=== PATIENT | female | born 1965 | race Caucasian/White ===

== ENCOUNTER 2020-11-15 10:16 | Outpatient (CLI) | payer OTHER, SELFPAY ==
--- NOTE | ~2020-11-15 | XR_ITS ---
EXAMINATION: XR chest 2V 11/15/2020 11:11 INDICATION: Shortness of breath PROCEDURE: 2 view chest COMPARISON: 05/27/2018 FINDINGS: The lungs are clear. The cardiomediastinal silhouette is within normal limits. There are no pleural effusions. There is no pneumothorax suspected. IMPRESSION: 1: NO ACUTE CARDIOPULMONARY DISEASE. Reviewed, dictated and finalized at location A.
--- NOTE | 2020-11-15 10:44 | ECG_ITS ---
Measurements Intervals [place] Rate: 73 P: 22 [place]: 156 QRS: 26 QRSD: 87 T: 33 QT: 382 QTc: 421 Interpretive Statements SINUS RHYTHM BASELINE WANDER- I, III NORMAL ECG Electronically Signed On 11-15-2020 11:05:48 CDT by Liang Rogel D.O.
== END 2020-11-15 10:17 | disposition home or self-care (01) ==
LOC: ANHCARD 10:18
PROVIDERS: PCP Family Medicine; Visit Provider Nurse Practitioner Family
DX: R68.89 Other general symptoms and signs (principal); R05 Cough
CPT/HCPCS: 71046; 93005

== ENCOUNTER 2020-12-28 01:40 | Day surgery (SDC) | payer OTHER, SELFPAY ==
[2020-12-21 13:39] VITALS: BMI 25.9
[2020-12-28 10:19] VITALS: BP 130/84; PULSE 91; RESP 16; TEMP 36.6; O2SAT 100; BMI 25.9
[2020-12-28] MEDS: LACTATED RINGERS 1,000 ML 150 ML IV CONT (10:22)
--- NOTE | 2020-12-28 10:33 | WPDGICN ---
Assessment and Plan Assessment and plan (1) Encounter for screening colonoscopy: Code(s): Z12.11 - Encounter for screening for malignant neoplasm of colon Status: Acute Assessment and Plan: Patient presents for screening colonoscopy. Appears to be at average risk for colon polyps. GI Consult Note Consult date/time: 12/28/20 10:33 HPI: Carola Cox is a 55 year old female Presents for screening colonoscopy. She reports that her current weight appetite bowel movements are normal. She denies abdominal pain. She has had no bleeding. Family history is noncontributory. Review of Systems Review of Systems: All systems reviewed & are unremarkable except as noted in HPI and below PMFSH Past Medical History Medical History Arthralgia of right temporomandibular joint BMI 25.0-25.9,adult Body mass index [BMI] 26.0-26.9, adult (09/16/18) Breast cancer screening Cervical cancer screening Cough Non-recurrent acute suppurative otitis media of right ear without spontaneous rupture of tympanic membrane Overweight Preventative health care Pure hypercholesterolemia, unspecified Strain of muscle(s) and tendon(s) of the rotator cuff of right shoulder, initial encounter Swelling of left eyelid Surgical History Surgical History H/O adenoidectomy S/P tonsillectomy Family History Family History Grandparent Diabetes mellitus Father Family history of cardiovascular disease Malignant neoplasm of prostate Family history of lymphoma Lymphoma Acute myocardial infarction CHF (congestive heart failure) Mother Family history of lung cancer Sibling Malignant neoplasm of prostate Social History Social History Smoking packs per day: 1 Smoking cigarettes per day: 20.0 Years smoked: 15 Smoking pack-years: 15.00 Smoking status: Former smoker Tobacco type: cigarettes Alcohol intake: current Drinks per week: 4 Alcohol use details: 4 drinks on the weekend Substance use: never Substance use type: does not use Living arrangements: with family Additional living arrangements comments: lives with spouse Additional occupation/education comments: [employer] Gender identity (if verbalized by the patient): Female Spiritual care concerns: No Meds Home Medications and Allergies Home Medications Medication Instructions Recorded Confirmed Type sonjxhc-opk-fic [id number] 250 1 tablet PO BID 11/08/20 12/28/20 History mg-40 mg-5 mg-125 unit tablet multivitamin 1 tablet PO DAILY 11/08/20 12/28/20 History omega-3 fatty acids 1,000 mg 1,000 mg PO DAILY 11/08/20 12/28/20 History capsule garden of life 1 tab-cap PO DAILY 12/07/20 12/28/20 History Allergies Allergy/AdvReac Type Severity Reaction Status Date / Time No Known Allergies Allergy Unknown Verified 12/28/20 10:18 Vital Signs Vital Signs - 24 hr 12/28/20 10:19 Temperature 97.8 F Pulse Rate 91 Respiratory Rate 16 Blood Pressure 130/84 Pulse Oximetry 100 Exam Narrative: Physical exam reveals patient to be alert. Vital signs stable. HEENT exam is unremarkable. Patient is anicteric. Lungs are clear to auscultation and percussion. Heart is without murmur or extra sounds. Abdominal exam bowel sounds are present soft nontender with no hepatosplenomegaly. Digital external rectal exam is normal
--- NOTE | 2020-12-28 11:07 | WPDANESEPPF ---
Anes - Initial Pre Proc Eval Procedure: Operation Date: 12/28/20 11:30 Proposed Procedures p Screening Colonoscopy - Dk Olmstead MD Date/Time: 12/28/20 11:07 Surgeon: Dk Olmstead MD Pre Op Diagnosis: neoplasm screening Patient Data Age: 55 Gender: F Height: 1.73 m Weight: 77.3 kg Last Vital Signs Temp 97.8 F 12/28/20 10:19 Pulse 91 12/28/20 10:19 Resp 16 12/28/20 10:19 BP 130/84 12/28/20 10:19 Pulse Ox 100 12/28/20 10:19 Allergies Allergy/AdvReac Type Severity Reaction Status Date / Time No Known Allergies Allergy Unknown Verified 12/28/20 10:18 Home Medications Medication Instructions Recorded Confirmed Type [id number] 250 1 tablet PO BID 11/08/20 12/28/20 History mg-40 mg-5 mg-125 unit tablet multivitamin 1 tablet PO DAILY 11/08/20 12/28/20 History omega-3 fatty acids 1,000 mg 1,000 mg PO DAILY 11/08/20 12/28/20 History capsule garden of life 1 tab-cap PO DAILY 12/07/20 12/28/20 History Patient hx anesthesia problems: none Family hx anesthesia problems: none Results Review: All pre-operative results and documents have been reviewed as part of the pre-operative evaluation. [facility] Past Medical History Medical History Arthralgia of right temporomandibular joint BMI 25.0-25.9,adult Body mass index [BMI] 26.0-26.9, adult (09/16/18) Breast cancer screening Cervical cancer screening Cough Non-recurrent acute suppurative otitis media of right ear without spontaneous rupture of tympanic membrane Overweight Preventative health care Pure hypercholesterolemia, unspecified Strain of muscle(s) and tendon(s) of the rotator cuff of right shoulder, initial encounter Swelling of left eyelid Surgical History Surgical History H/O adenoidectomy S/P tonsillectomy Family History Family History Grandparent Diabetes mellitus Father Family history of cardiovascular disease Malignant neoplasm of prostate Family history of lymphoma Lymphoma Acute myocardial infarction CHF (congestive heart failure) Mother Family history of lung cancer Sibling Malignant neoplasm of prostate Social History Social History Smoking packs per day: 1 Smoking cigarettes per day: 20.0 Years smoked: 15 Smoking pack-years: 15.00 Smoking status: Former smoker Tobacco type: cigarettes Alcohol intake: current Drinks per week: 4 Alcohol use details: 4 drinks on the weekend Substance use: never Substance use type: does not use Living arrangements: with family Additional living arrangements comments: lives with spouse 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 Informed Consent: The patient's anesthetic plan and its attendant risks and benefits were discussed with the patient/family/POA. Questions were solicited and answers provided to the satisfaction of the patient/family/POA.
[2020-12-28 12:16] VITALS: BP 93/45; PULSE 78; RESP 18; O2SAT 98
[2020-12-28 12:26] VITALS: BP 99/59; PULSE 80; RESP 16; O2SAT 100
[2020-12-28 12:36] VITALS: BP 102/56; PULSE 72; RESP 18; O2SAT 100
== END 2020-12-28 12:54 | disposition home or self-care (01) ==
PROVIDERS: PCP Family Medicine; Visit Provider Internal Medicine Gastroenterology
PROC: 0DJD8ZZ Inspection of Lower Intestinal Tract, Via Natural or Artificial Opening Endoscopic (ICD-10-PCS; CPT 45378; principal; 2020-12-28 11:30)
DX: Z12.11 Encounter for screening for malignant neoplasm of colon (principal); K64.8 Other hemorrhoids; K57.30 Diverticulosis of large intestine without perforation or abscess without bleeding; Z87.891 Personal history of nicotine dependence
CPT/HCPCS: 45378; J2001; J2704; J7120

== ENCOUNTER 2021-01-28 09:45 | Outpatient (CLI) | payer OTHER, SELFPAY ==
--- NOTE | ~2021-01-28 | MM_ITS ---
EXAMINATION: MM screening [facility] BI w debra HISTORY: Screening mammogram TECHNIQUE: Craniocaudal and mediolateral oblique 3-D tomosynthesis images were obtained and synthetic 2-D images were generated. CAD analysis was submitted and interpreted. COMPARISON: 09/04/2018, 12/29/2014 bilateral screening mammogram examinations BREAST PARENCHYMAL COMPOSITION: The breasts are heterogeneously dense, which may obscure small masses . FINDINGS: There is no evidence of suspicious mass, calcification, or architectural distortion to sugg est malignancy in either breast. There has been no suspicious interval change. IMPRESSION: 1. No mammographic evidence of malignancy. 2. Recommend routine screening mammography in one year. BI-RADS Category 1: Negative Reviewed, dictated and finalized at location A.
--- NOTE | ~2021-01-28 | DEXA_ITS ---
Bone Density Report Name: Carola Cox Age: 55 Sex: Female Ethnicity: White Date of : 1965 Indication: postmenopausal; height loss; prior fracture; Referring Provider: JAMIE BOURNE Study: Bone densitometry was performed. Exam Date: January 28, 2021 Accession number: [id number] Bone Density: Region BMD T-score Z-score Classification AP Spine (L1-L4) 1.031 -0.1 1.1 Normal Femoral Neck (Left) 0.738 -1.0 0.2 Normal Total Hip (Left) 0.920 -0.2 0.6 Normal Total Hip Bilateral Avg 0.923 -0.2 0.7 Normal Femoral Neck (Right) 0.835 -0.1 1.1 Normal Total Hip (Right) 0.925 -0.1 0.7 Normal World Health Organization criteria for BMD impression classify patients as: Normal (T-score at or above -1.0), Osteopenia (T-score between -1.0 and -2.5), or Osteoporosis (T-score at or below -2.5). 10-year Fracture Risk: FRAX not reported because: All T-scores for Spine Total, Hip Total, Femoral Neck at or above -1.0 Clinical Information Provided by Patient: Has had a low trauma fracture Has used the following medications: Calcium Patient maximum height was 69 Menopause Age: 43 Drinks caffeinated beverages Onset of menses at age 13 Number of children 1 Impression: The patient has normal bone mass. The patient has risk factors, including: previous fracture. Discussion: BONE DENSITY IS ABOVE THE MINIMUM DESIRABLE LEVEL AT ALL SKELETAL SITES TESTED. This patient?s bone mineral density is above the minimum desirable level (T-score -1.0 or better) at all sites measured. The patient should follow a healthful lifestyle (good nutrition with adequate calcium and vitamin D, and appropriate weight-bearing exercise). Follow-Up: Consider repeating this study in 5 years or sooner if there is some new clinical indication. Reported by: CRISTINO on 01/28/2021 10:06:00 AM. Reviewed, dictated and finalized at location ANoe NORWOOD
== END 2021-01-28 09:46 | disposition home or self-care (01) ==
LOC: ANHIMG 09:46
PROVIDERS: PCP Family Medicine; Visit Provider Obstetrics & Gynecology
DX: Z12.31 Encounter for screening mammogram for malignant neoplasm of breast (principal); Z78.0 Asymptomatic menopausal state
CPT/HCPCS: 77063; 77067; 77080

== ENCOUNTER → 2021-12-30 07:26 | Outpatient (CLI) | payer OTHER, SELFPAY ==
--- NOTE | ~2021-12-30 | XR_ITS ---
EXAMINATION: XR shoulder LT min 2V INDICATION: Left shoulder pain TECHNIQUE: Four views of the left shoulder are submitted. COMPARISON: None FINDINGS: Normal alignment. No fracture. Glenohumeral and acromioclavicular joint spaces are normal. Soft tissues are unremarkable. IMPRESSION: 1. No acute osseous abnormality. Reviewed, dictated and finalized at location A.
== END ==
PROVIDERS: PCP Nurse Practitioner Family; Visit Provider Nurse Practitioner Family
DX: M25.512 Pain in left shoulder (principal)
CPT/HCPCS: 73030

== ENCOUNTER 2022-03-02 07:43 | Outpatient (CLI) | payer OTHER, SELFPAY ==
--- NOTE | ~2022-03-02 | MM_ITS ---
EXAMINATION: MM screening [facility] BI w debra HISTORY: Screening mammogram TECHNIQUE: Craniocaudal and mediolateral oblique 3-D tomosynthesis images were obtained and synthetic 2-D images were generated. CAD analysis was submitted and interpreted. COMPARISON: 01/28/2021, 09/04/2018, 12/29/2014 BREAST PARENCHYMAL COMPOSITION: The breasts are heterogeneously dense, which may obscure small masses . FINDINGS: No suspicious mass, calcification, or architectural distortion are identified in either nika ast to suggest malignancy. There has been no suspicious interval change. IMPRESSION: 1. No mammographic evidence of malignancy. 2. Recommend routine screening mammography in one year. BI-RADS Category 1: Negative Reviewed, dictated and finalized at location A. NG BLOCK CUTTER
== END 2022-03-02 07:44 | disposition home or self-care (01) ==
PROVIDERS: PCP Family Medicine; Visit Provider Nurse Practitioner Family
DX: Z12.31 Encounter for screening mammogram for malignant neoplasm of breast (principal)
CPT/HCPCS: 77063; 77067

== ENCOUNTER 2022-03-14 10:15 | Outpatient (RCR) | payer OTHER, SELFPAY ==
[2022-02-27 08:02] VITALS: BP_SYST 130
--- NOTE | 2022-02-27 09:11 | PTOPEVAL1 ---
Assessment and note entered by Rohini Dhillon, PT, DPT Evaluation Information Assessment Status Evaluation Diagnosis L shoulder pain Onset a few month ago Subjective Information Pt states she has had should pain for a while. She reports intermittent achy feelings in her shoulder and states her ROM is limited compared to the uninvolved side. Pt states her pain goals are to limit pain, and to improve her ROM. Reported Pain Level Pain Score 0: Self Report Assessment PT Clinical Summary Carola is a 56 y/o female who presents to therapy today with a diagnosis of L shoulder pain. Today she demonstrates mild limitations in active flexion, with a majority of her limitations being in abduction. She is equally limited in her flexion and abduction strength, which are both grossly 4-/5. She demonstrates moderate rounded shoulders which could be contributing to her pain. Skilled physical therapy services are indicated to address the deficits noted above, to improve body mechanics, to improve posture, and to return to baseline function. Plan of Care Interventions Electrical Stimulation,Hot Pack/Cold Pack,Manual Therapy,Neuro Re-education,Patient/Caregiver Educati,Therapeutic Activities,Therapeutic Exercise PT Services Indicated Yes Treatment Frequency and 2x/wk for 3 wks Duration These treatments will address the objective and functional deficits as defined above. The patient will be advanced safely and appropriately in order for the patient to progress towards his/her prior level of function. Additional exercises will be introduced and as well as a comprehensive home exercise program upon discharge, if needed, ?to ensure carryover of functional gains achieved in the clinic. This treatment plan has been reviewed and agreement upon by the patient.
[2022-03-14 10:23] VITALS: BP_SYST 130
--- NOTE | 2022-03-14 10:58 | PTOPPROG ---
Assessment and note entered by Rohini Dhillon, PT, DPT Evaluation Information Assessment Status Progress Diagnosis L shoulder pain Onset a few month ago Subjective Information Pt states overall her shoulder has been feeling better but today is it just tight and sore. Assessment PT Clinical Summary Carola presents to therapy today for her progress report following 4 visits of skilled therapy. Today she demonstrates improved active abduction ROM to 135 deg, active flexion remains ~150 deg. She demonstrates mild strength improvements but is still decreased on the L when compared to the R. Pt is leaving for a month long trip. She will return for a follow up when she returns, if needed . She was instructed to continue her HEP until then. Plan of Care Interventions Electrical Stimulation,Hot Pack/Cold Pack,Manual Therapy,Neuro Re-education,Patient/Caregiver Educati,Therapeutic Activities,Therapeutic Exercise PT Services Indicated Yes Treatment Frequency and follow up in 1 month Duration These treatments will address the objective and functional deficits as defined above. The patient will be advanced safely and appropriately in order for the patient to progress towards his/her prior level of function. Additional exercises will be introduced and as well as a comprehensive home exercise program upon discharge, if needed, ?to ensure carryover of functional gains achieved in the clinic. This treatment plan has been reviewed and agreement upon by the patient.
--- NOTE | 2022-04-13 14:02 | PTOPDC ---
Assessment and note entered by Rohini Dhillon, PT, DPT Evaluation Information Assessment Status Discharge - Pt Not Present Diagnosis L shoulder pain Onset a few month ago Subjective Information Patient called today and cancelled her re- evaluation for tomorrow standing her shoulder is feeling a lot better. Assessment PT Clinical Summary Carola completes 4 visits of skilled therapy from 02/27/22 to 03/14/22 along with a home exercise program. She will be discharged at this time per request. Will need a new order if she needs therapy at a later date. Plan of Care Treatment Frequency and discharge Duration
== END 2022-04-13 14:22 | disposition home or self-care (01) ==
LOC: ANHGOSHPT 10:15
PROVIDERS: PCP Family Medicine; Visit Provider Nurse Practitioner Family
DX: M25.512 Pain in left shoulder (principal)
CPT/HCPCS: 97110; 97112; 97161

== ENCOUNTER 2023-04-26 14:33 | Outpatient (CLI) | payer OTHER, SELFPAY ==
--- NOTE | ~2023-04-26 | MM_ITS ---
EXAMINATION: MM screening [facility] BI w debra HISTORY: Screening mammogram TECHNIQUE: Craniocaudal and mediolateral oblique 3-D tomosynthesis images were obtained and synthetic 2-D images were generated. CAD analysis was submitted and interpreted. COMPARISON: 03/02/2022, 01/28/2021, 09/04/2018 BREAST PARENCHYMAL COMPOSITION: The breasts are heterogeneously dense, which may obscure small masses . FINDINGS: RIGHT BREAST: No suspicious mass, calcification, or architectural distortion are identified to sugges t malignancy. There has been no suspicious interval change. LEFT BREAST: An asymmetry is present in the middle third of the breast in line with the nipple axis V I.2 cm from the nipple on the mediolateral oblique. IMPRESSION: 1. Left breast asymmetry. 2. Additional mammographic views and possible breast ultrasound are recommended. BI-RADS Category 0: Incomplete: Needs additional imaging evaluation. Reviewed, dictated and finalized at location A. TROMECHANICAL ASSEMBLER IMPRESSION: 1. Left breast asymmetry. 2. Additional mammographic views and possible breast ultrasound are recommended . BI-RADS Category 0: Incomplete: Needs additional imaging evaluation.
== END 2023-04-26 14:34 | disposition home or self-care (01) ==
LOC: ANHIMG 14:36
PROVIDERS: PCP Family Medicine; Visit Provider Obstetrics & Gynecology
DX: Z12.31 Encounter for screening mammogram for malignant neoplasm of breast (principal); R92.8 Other abnormal and inconclusive findings on diagnostic imaging of breast
CPT/HCPCS: 77063; 77067

== ENCOUNTER 2023-05-28 12:09 | Outpatient (CLI) | payer OTHER, SELFPAY ==
--- NOTE | ~2023-05-28 | MMUS_ITS ---
EXAMINATION: MM diagnostic yolanda LT w debra, US breast LT complete HISTORY: Follow-up left breast asymmetry TECHNIQUE: Additional 3-D tomosynthesis images of the left breast were performed and synthetic 2-D im ages were generated. CAD analysis was submitted and interpreted. High resolution complete left breast ultrasound was performed. COMPARISON: Comparison to multiple prior studies sequentially, with oldest reviewed study dated 07/23. BREAST PARENCHYMAL COMPOSITION: Dense: The breasts are heterogeneously dense, which may obscure small masses FINDINGS: MAMMOGRAPHIC FINDINGS: There are no suspicious masses, calcifications or architectural distortion in the left breast to sugg est malignancy. ULTRASOUND: Complete US of all 4 quadrants of the left breast and retroareolar region was reviewed. At 2:00, 12 c m from the nipple, there is a benign-appearing lymph node measuring 7 mm. At 4:00, 7 cm from the nipp le, there is a 5 mm cyst. At 1:00, 5 cm from the nipple there is an oval parallel oriented hypoechoic mass with circumscribed margins, no significant posterior features and no internal vascularity measu ring 5 mm. IMPRESSION: 1. Probable benign left breast mass at 1:00, 5 cm from the nipple. 2. Recommend 6 month follow-up Limited left breast ultrasound BI-RADS category 3, probably benign findings. Reviewed, dictated and finalized at location A. E CLERK IMPRESSION: 1. Probable benign left breast mass at 1:00, 5 cm from the nipple. 2. Recommend 6 month follow-up Limited left breast ultrasound BI-RADS category 3, probably benign findings.
== END 2023-05-28 12:10 | disposition home or self-care (01) ==
LOC: ANHIMG 12:15
PROVIDERS: PCP Family Medicine; Visit Provider Obstetrics & Gynecology
DX: R92.8 Other abnormal and inconclusive findings on diagnostic imaging of breast (principal)
CPT/HCPCS: 76641; 77061; 77065; G0279

== ENCOUNTER 2023-12-05 10:19 | Outpatient (CLI) | payer OTHER, SELFPAY ==
--- NOTE | ~2023-12-05 | US_ITS ---
US breast LT limited INDICATION: Follow-up left breast mass TECHNIQUE: Dedicated high-resolution Limited left breast ultrasound COMPARISON: 05/28/2023 BREAST DENSITY: Dense: The breasts are heterogeneously dense, which may obscure small masses FINDINGS: The left breast is/are composed of normal heterogeneous echotexture without focal solid or cystic mass. IMPRESSION: 1: Normal left breast ultrasound. BI-RADS CATEGORY 1 - NEGATIVE Reviewed, dictated and finalized at location B.
== END 2023-12-05 10:20 | disposition home or self-care (01) ==
LOC: ANHIMG 10:25
PROVIDERS: PCP Family Medicine; Visit Provider Obstetrics & Gynecology
DX: R92.8 Other abnormal and inconclusive findings on diagnostic imaging of breast (principal)
CPT/HCPCS: 76642

== ENCOUNTER 2023-12-24 09:40 | Outpatient (CLI) | payer OTHER, SELFPAY ==
--- NOTE | ~2023-12-24 | CT_ITS ---
CT Scan of the Chest without Contrast: Clinical Indication: Lung cancer screening, nicotine dependence Technique: Contiguous sections were acquired throughout the chest without intravenous contrast. Dose reduction technique was used on this scan by utilizing automated exposure control and iterative recon struction technique. The dose-length product (DLP) was 128.08 mGy-cm. Findings: There is no evidence of any significant mediastinal, hilar or axillary lymphadenopathy. Coronary clifford ry calcifications are present. There is no evidence of pleural or pericardial effusion. The lungs are clear. No pulmonary nodules or infiltrates are noted. Images through the upper abdomen reveal no abnormalities. Impression: Lung RADS 1: Negative. 12 month follow-up screening CT advised. Reviewed, dictated and finalized at location . Impression: Lung RADS 1: Negative. 12 month follow-up screening CT advised.
== END 2023-12-24 09:41 | disposition home or self-care (01) ==
PROVIDERS: PCP Family Medicine; Visit Provider Physician Assistant Medical
DX: Z12.2 Encounter for screening for malignant neoplasm of respiratory organs (principal); Z87.891 Personal history of nicotine dependence
CPT/HCPCS: 71271

== ENCOUNTER 2024-08-06 08:35 | Outpatient (CLI) | payer OTHER, SELFPAY ==
--- NOTE | ~2024-08-06 | MM_ITS ---
EXAMINATION: MM screening [facility] BI w debra HISTORY: Screening TECHNIQUE: Craniocaudal and mediolateral oblique 3-D tomosynthesis images were obtained and synthetic 2-D images were generated. CAD analysis was submitted and interpreted. COMPARISON: Comparison to multiple prior studies sequentially, with oldest reviewed study dated 12/29. BREAST PARENCHYMAL COMPOSITION: Dense: The breasts are heterogeneously dense, which may obscure small masses FINDINGS: There is no evidence of suspicious mass, calcification, or architectural distortion to sugg est malignancy in either breast. There has been no suspicious interval change. IMPRESSION: 1. No mammographic evidence of malignancy. 2. Recommend routine screening mammography in one year. BI-RADS Category 1: Negative Reviewed, dictated and finalized at location A.
== END 2024-08-06 08:36 | disposition home or self-care (01) ==
LOC: ANHIMG 08:37
PROVIDERS: PCP Family Medicine; Visit Provider Obstetrics & Gynecology
DX: Z12.31 Encounter for screening mammogram for malignant neoplasm of breast (principal)
CPT/HCPCS: 77063; 77067

== ENCOUNTER 2025-02-02 08:02 | Outpatient (CLI) | payer OTHER, SELFPAY | END 2025-02-02 08:03 | disposition home or self-care (01) | LOC: ANHAUDASC 08:03 | PROVIDERS: PCP Family Medicine; Visit Provider Physician Assistant Medical | DX: H91.93 Unspecified hearing loss, bilateral (principal) | CPT/HCPCS: 92557; 92567 ==